=== PATIENT | female | born 1995 | race African-American/Black ===

== ENCOUNTER 2019-09-23 11:48 | Emergency (ER) | payer SELFPAY ==
[2019-09-23 12:02] VITALS: BP 126/82; PULSE 99; RESP 16; TEMP 38.4; O2SAT 98
--- NOTE | 2019-09-23 12:14 | ED.URI ---
HPI - URI/Sore Throat General Chief Complaint: Upper Respiratory Infection Stated Complaint: Pos Flu Time Seen by Provider: 09/23/19 12:14 Source: patient Mode of arrival: ambulatory Limitations: no limitations History of Present Illness HPI Narrative: Kristi Staley is 24-year-old female with no prior medical history who [facility] 2 days of body aches cough headache that has not responded to [id number] medication. On arrival she has a temperature 101.1 Related Data Home Medications Medication Instructions Recorded Confirmed Vicks DayQuil-NyQuil 09/23/19 Allergies Allergy/AdvReac Type Severity Reaction Status Date / Time No Known Allergies Allergy Unknown Unverified 04/06/16 15:10 Review of Systems Review of Systems: Narrative: CONSTITUTIONAL: Has fever, chills, sweats. EYES: Denies visual changes, redness, discharge. ENT: Has rhinorrhea, congestion, has sore throat, otalgia. CARDIOVASCULAR: Denies chest pain, palpitations, edema. RESPIRATORY: Denies dyspnea, wheezing, dry cough GASTROINTESTINAL: Denies abdominal pain, nausea, vomiting, diarrhea. GENITOURINARY: Denies dysuria, hematuria, abnormal discharge SKIN: Denies rash or itching. MUSCULOSKELETAL: Denies acute back pain, joint pain, or myalgia. NEUROLOGIC: Denies numbness, or focal weakness. PSYCHIATRIC: Denies anxiety or depression. COUNT INCLUDES THE [facility] Family History Family History Other No active medical problems Social History Social History Smoking status: Never smoker Alcohol intake: never Comments At time of signature, I agree with nursing past medical, surgical, social and family history. There is no relevant family history pertinent to the presenting complaint. Exam Narrative: Exam Narrative: GENERAL: This is a well-nourished, well-developed patient, in moderate distress. HEAD: normocephalic, atraumatic. EYES: PERRL. Sclera clear/white. Vision is grossly intact. EARS: External ears normal, auditory canals clear and without drainage, TMs normal without perforation. Hearing grossly intact. NOSE: External nose normal with no obvious nasal discharge, nares with redness, has rhinorrhea. THROAT: Mucous membranes moist, posterior pharynx erythema. NECK: Neck supple, non-tender without lymphadenopathy, masses or thyromegaly. CARDIOVASCULAR: Regular rate and rhythm without murmurs, gallops, or rubs. RESPIRATORY: Clear to auscultation. Breath sounds equal bilaterally. No wheezes, rales, or rhonchi. GASTROINTESTINAL: Abdomen soft, non-tender, nondistended. SKIN: warm, intact with no suspicious lesions or rash, good texture and turgor. NEURO: awake, alert, and oriented to person, place and time. There were no obvious focal neurologic abnormalities. Steady gait EXTREMITIES: Normal range of motion. No edema. BACK: Nontender without deformity or crepitance. No flank tenderness. Course Course Emergency Course: Strep negative Flu be positive Started on Tamiflu, ibuprofen, Delsym cough syrup Vital Signs Vital signs: Vital Signs Temperature 101.1 F H 09/23/19 12:02 Pulse Rate 99 09/23/19 12:02 Respiratory Rate 16 09/23/19 12:02 Blood Pressure 126/82 09/23/19 12:02 Pulse Oximetry 98 09/23/19 12:02 Temperature 101.1 F H 09/23/19 12:02 Pulse Rate 99 09/23/19 12:02 Respiratory Rate 16 09/23/19 12:02 Blood Pressure 126/82 09/23/19 12:02 Pulse Oximetry 98 09/23/19 12:02 MDM - URI/Sore Throat Differential Diagnosis Differential diagnosis: Likely upper respiratory infection, influenza and other Discharge Plan Discharge Clinical Impression: Influenza Patient Disposition: Home, Self-Care Condition: Stable Instructions: Antibiotic Form Prescriptions: New oseltamivir [Tamiflu] 75 mg capsule 75 mg PO Q12H 5 Days Qty: 10 RF: 0 ibuprofen 600 mg tablet 600 mg PO Q6H
== END 2019-09-23 12:39 | disposition home or self-care (01) ==
PROVIDERS: Emergency Provider Nurse Practitioner
DX: J11.1 Influenza due to unidentified influenza virus with other respiratory manifestations (principal)
CPT/HCPCS: 87081; 87804; 87880; 99213; G0463

== ENCOUNTER 2023-01-31 12:30 | Emergency (ER) | payer BC, SELFPAY ==
[2023-01-31] VITALS (11 sets, daily range): BP systolic 124–139; BP diastolic 68–73; PULSE 74–89; RESP 16–17; TEMP 36.4; O2SAT 98–100
--- NOTE | ~2023-01-31 | US_ITS ---
US OB follow up DATE: 01/31/2023 13:12 INDICATION: Lower abdominal pain; 19 weeks gestational age TECHNIQUE: Real-time imaging and Doppler analysis COMPARISON: None FINDINGS: There is a live strong intrauterine gestation, fetus in longitudinal lie, vertex present ation, with heart rate of 147 bpm. Posterior placenta. Normal amount of amniotic fluid by subjective assessment with up to 4.1 cm deep a mniotic fluid pocket. Biparietal diameter 4.66 cm; 20 weeks 1 day Head circumference 16.97 cm; 19 weeks 4 days Abdominal circumference 14.31 cm; 19 weeks 5 days Femur length 3.05 cm; 19 weeks 3 days Composite age by Hadlock formula is 19 weeks 5 days +/- 1 week 3 days with JEMAL of 06/22/2023, compared to 06/25/2023 by LMP. Estimated weight is 301 +/- 45 g. Estimated weight-GP: 63.5% Head circumference/abdominal circumference 1.19, within normal range of 1.08-1.26 Femur length/head circumference 18.00, within normal range of 16.60-19.37. IMPRESSION: Estimated gestational age is 19 weeks 5 days +/- 1 week 3 days with JEMAL of 06/22/2023, com pared to 07/05/2023 by LMP Reviewed, dictated and finalized at [facility]. Reviewed, dictated and finalized at [facility]. IMPRESSION: Estimated gestational age is 19 weeks 5 days +/- 1 week 3 days with JEMAL of 06/22/2023, compared to 07/05/2023 by LMP
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
--- NOTE | 2023-01-31 12:57 | PC.NURSE ---
US at bedside.
[2023-01-31 13:24] LABS: Basophils Percent Auto 0.2 % (0.2-1.2); Eosinophils Percent Auto 0.3 % (0-4.4); Hematocrit 30.2 % (37.0-47.0); Immature Granulocyte Absolute 0.05 K/mm3 (0.00-0.031); Immature Granulocyte Percent A 0.5 % (0-0.5); Lymphocytes Absolute Auto 1.82 K/mm3 (0.9-3.2); Lymphocytes Percent Auto 16.9 % (18.3-44.2); Mean Corpuscular HGB Conc 33.1 g/dl (32-36); Mean Corpuscular Hemoglobin 26.8 pg (26-34); Mean Platelet Volume 11.2 fl (7.4-10.4); Monocytes Absolute Auto 0.8 K/mm3 (0.1-0.6); Monocytes Percent Auto 7.3 % (2.6-8.5); Neutrophils Absolute Auto 8.1 K/mm3 (1.3-6.7); Neutrophils Percent Auto 74.8 % (45.5-73.1); Platelet Count Result 238 k/mm3 (150-375); Red Blood Count 3.73 M/mm3 (4.2-5.4); Red Cell Distribution Width 12.8 % (11.5-14.5); White Blood Count 10.8 K/mm3 (4.5-10.0)
[2023-01-31 13:30] LABS: Appearance Urine Cloudy (Clear); Bacteria Urine 1+ /hpf; Bilirubin Urine Negative (Negative); Blood Urine Negative (Negative); Color Urine Yellow (Yellow); Glucose Urine UA Negative (Negative); Ketones Urine Negative (Negative); Leukocyte Esterase Ur Negative LEU/UL (Negative); Nitrate Urine Negative (Negative); Non Pathogenic Casts 0-2; Protein Urine Negative (Negative); RBC Urine 0-2 /hpf (0-2); Specific Grav Ur 1.014 (1.001-1.035); Squamous Epithelial Cell Urine Moderate /hpf (Few); WBC Urine 0-5 /hpf; pH Urine 6.5 (5.0-9.0)
[2023-01-31] MEDS: LACTATED RINGERS 1,000 ML 999 ML IV CONT (13:36)
[2023-01-31 13:38] LABS: Alanine Aminotransferase 18 U/L (6-35); Albumin Level 3.6 g/dL (3.5-5.1); Alkaline Phosphatase 38 U/L (38-126); Anion Gap 3 mmol/L (8-16); Aspartate Amino Transferase 21 U/L (14-36); Bilirubin,Total 0.6 mg/dL (0.2-1.3); Blood Urea Nitrogen 8 mg/dL (7-17); Calcium 8.4 mg/dL (8.4-10.2); Carbon Dioxide 24 mmol/L (22-30); Chloride 106 mmol/L (98-107); Estimated CRCL calculation 157 ml/min; Estimated Glomerular Filt Rate > 60; Glucose 82 mg/dL (65-110); Potassium 3.9 mmol/L (3.4-5.0); Sodium 133 mmol/L (137-145)
[2023-01-31 13:49] LABS: Add Urine Microscopic? YES
[2023-01-31 14:00] LABS: Influenza A QL RT-PCR Negative (Negative); Influenza B QL RT-PCR Negative (Negative); SARS-CoV-2 RNA PCR Negative (Negative)
== END 2023-01-31 14:36 | disposition home or self-care (01) ==
PROVIDERS: Emergency Provider General Practice
DX: O26.892 Other specified pregnancy related conditions, second trimester (principal); R10.30 Lower abdominal pain, unspecified; Z20.822 Contact with and (suspected) exposure to COVID-19; Z86.16 Personal history of COVID-19; Z3A.20 20 weeks gestation of pregnancy
CPT/HCPCS: 36415; 76816; 80053; 81001; 85025; 87636; 96361; 96365; 99284; J0131; J7120

== ENCOUNTER 2024-02-25 16:52 | Emergency (ER) | payer OTHER, BC, SELFPAY ==
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
[2024-02-25 17:01] VITALS: BP 144/104; PULSE 77; RESP 14; TEMP 36.6; O2SAT 98
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
[2024-02-25] MEDS: ACETAMINOPHEN 500 MG TABLET 1000 MG PO (18:25)
[2024-02-25 20:05] VITALS: BP 138/90; PULSE 80; RESP 17; O2SAT 100
== END 2024-02-25 20:05 | disposition home or self-care (01) ==
PROVIDERS: Emergency Provider Physician Assistant
DX: S16.1XXA Strain of muscle, fascia and tendon at neck level, initial encounter (principal); M47.812 Spondylosis without myelopathy or radiculopathy, cervical region; M47.816 Spondylosis without myelopathy or radiculopathy, lumbar region; M47.814 Spondylosis without myelopathy or radiculopathy, thoracic region; V49.50XA Passenger injured in collision with unspecified motor vehicles in traffic accident, initial encounter
CPT/HCPCS: 70450; 72125; 72128; 72131; 73030; 81025; 99284; A9270

== ENCOUNTER 2024-12-16 08:25 | Emergency (ER) | payer BC, SELFPAY ==
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
[2024-12-16 08:29] VITALS: PULSE 103; RESP 16; TEMP 36.6; O2SAT 100
--- NOTE | 2024-12-16 09:04 | ED_ITS ---
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 Pt has antibiotic prescribed but has not filled it. Pt complains of right ankle pain to outside of ankle. Pt not sure if she twisted ankle when she was running from dog. Related Data Home Medications ?Medication ?Instructions ?Recorded ?Confirmed ?Last Taken ?Type Vicks DayQuil-NyQuil 09/23/19 Unknown History Allergies Allergy/AdvReac Type Severity Reaction Status Date / Time No Known Allergies Allergy Unknown Verified 12/16/24 08:26 Review of Systems Review of Systems: All systems reviewed & are unremarkable except as noted in HPI and below PMFSH Past Medical History Medical History (Updated 12/16/24 @ 09:09 by Mylene Mcguire III DO) Patient denies medical problems Surgical History Surgical History (Updated 01/31/23 @ 13:01 by Carmen Dove MD) No pertinent past surgical history Family History Family History Other No active medical problems Social History Social History Smoking status: Never smoker Alcohol intake: never Exam Const: General: healthy appearing and no acute distress Orientation/consciousness: patient oriented x3 Limitations: no limitations Resp: Effort & Inspection: normal respiratory effort Auscultation: clear to auscultation bilaterally Cardio: Rate: regular rate Rhythm: regular rhythm Skin: General skin exam: normal color Rashes: no rashes Wounds: no wounds Neuro: General: patient oriented x3, moves all extremities and no focal motor deficits Extrem: Other: tender over atfl on right ankle Psych: Mental Status: mental status grossly normal Affect: normal affect Attitude: cooperative Course Vital Signs Vital signs: Vital Signs Temperature 97.8 F 12/16/24 08:29 Pulse Rate 103 H 12/16/24 08:29 Respiratory Rate 16 12/16/24 08:29 Pulse Oximetry 100 12/16/24 08:29 Temperature 97.8 F 12/16/24 09:32 Pulse Rate 96 12/16/24 09:32 Respiratory Rate 16 12/16/24 09:32 Blood Pressure 124/82 12/16/24 09:32 Pulse Oximetry 100 12/16/24 09:32 MDM - Extremity Injury (Lower) MDM Narrative Medical decision making narrative: pt has laterla ankle pain after running from dog that bit her. x rays neg. pt has antibiotics precribed for dog bite. ankle sprain ice elevated crutches naprosyn off work for 3 days Discharge Plan Discharge Clinical Impression: Ankle sprain Patient Disposition: Home Condition: Stable Instructions: Antibiotic Form, Ankle Sprain (DC) Patient Language: Urdu Prescriptions: New naproxen [Naprosyn] 500 mg tablet 500 mg PO BID Qty: 20 0RF No Action Vicks DayQuil-NyQuil oseltamivir [Tamiflu] 75 mg capsule 75 mg PO Q12H 5 Days Qty: 10 0RF ibuprofen 600 mg tablet 600 mg PO Q6H PRN (Reason: fever or pain) Qty: 20 0RF Delsym Cough-Chest Congest DM 5-100 mg/5 mL liquid 10 ml PO Q4-8H PRN (Reason: cough) Qty: 180 0RF cyclobenzaprine 10 mg tablet 10 mg PO TID PRN (Reason: muscle spasm) Qty: 14 0RF Follow-up/Referrals: PHYSICIAN,POCKET CREASER [Non-Staff] - Stand Alone Forms: Work/School Release IP
[2024-12-16 09:32] VITALS: BP 124/82; PULSE 96; RESP 16; TEMP 36.6; O2SAT 100
--- OUTSIDE RECORDS SUMMARY | 2024-12-17 11:06 | XMS_ITS | Data Portability ---
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 She has a history of a fibroid cyst growth on right breast, which has not changed since the age of 18. The patient is experiencing discharge, possibly related to soap usage and a previous trichomoniasis infection. The patient's previous Pap smear was normal, and she has not had any abnormal results or concerns related to sexually transmitted infections. Overall, the patient appears to be in good health, with no significant concerns identified during the visit. Fibroid cyst growth: The patient has a long-standing fibrous cyst in right breast that has not changed in size since it was first identified at 18 years old. It is not causing any symptoms or problems for the patient. The patient is advised to monitor the cyst for any changes and to notify the healthcare team if any changes occur. Not available 12/01/2023 15:13:05 Plan of Treatment Reminders Order Date Submit Date Provider Last Modified By Organization Details Last Modified Time Details Appointments None recorded. Lab unlisted lab - STD screening ([facility]) 2023 024 ZOË [facility], [address] [place], [address], 12:59:26 pap, LB 2023 024 [facility], [address] [facility], [place], [address], 17:00:21 unlisted lab - Pap reflex hold 2023 024 berto salas [facility], [address] [place], [address], 4 11:02:29 STI panel 2023 024 ZOË [facility], [address] [place], [address], 4 09:58:18 Referral None recorded. Procedures None recorded. Surgeries None recorded. Imaging None recorded. Medication Orders Depo-Research Epidemiologist a 150 mg/mL intramuscul ar suspension [email or web address] [id number], [address] , [place], [place], [id number], 15:10:07 Patient TargetsNo targets recorded. Patient Instructions Encounter Date Encounter Id Patient Instructions Last Modified By Organization Details Last Modified Time 12/01/2023 [id number] body mass index: care instructions Not available 12/01/2023 15:10:32 Following the [employer] Food Guide: Care Instructions Not available 12/01/2023 15:10:07 exercise program : getting started Not available 12/01/2023 15:10:07 learning about breast cancer screening Not available 12/01/2023 15:10:07 mammogram: about this test Not available 12/01/2023 15:10:07 - Monitor the fibroid cyst growth for any changes and notify the healthcare team if any changes occur - Use boric acid suppositories for three nights to alleviate the discharge - Await results of the Pap smear and STI testing, which will be provided in five days - Obtain Depo-Provera refills from the pharmacy when needed - Continue to have well woman exams annually, even if Pap smears are not required every year - Contact the healthcare team if any concerns or issues arise Not available 12/01/2023 15:14:35 Not available 2023 15:14:43 Reason for Referral None Reported. Results Created Date Observation Date Name Description Value Unit Range Abnormal Flag Note LastModifiedBy Organization Detail LastModifiedTime 12/01/19 24 12/02/2023 STD SCREE VERA ([facility] ) hep BS Ag Non-Re active non-re active normal Not Available [address], [address], 12/02/2023 12:59:26 12/01/19 24 12/02/2023 STD SCREE VERA ([facility] ) hep C Ab Non-Re active non-re active normal Not Available [address], [address], 12/02/2023 12:59:26 12/01/19 24 12/02/2023 STD SCREE VERA ([facility] ) HIV 1/2 Ag/Ab Non-Re active non-re active normal Not Available [address], [address], 12/02/2023 12:59:26 12/01/19 24 12/02/2023 STD [facility] ([facility] ) syphilis Ab Non-Re active non-re active normal Not Available [address], [address], 12/02/2023 12:59:26 12/01/19 24 12/03/2023 THINP REP TIS PAP clinical information: normal None given Not Available [employer] [facility] [address] [place], [address], 12/03/2023 17:00:21 12/01/19 24 12/03/2023 THINP REP TIS PAP LMP: normal None given Not Available [employer] [facility] [address] [place], [address], 12/03/2023 17:00:21 12/01/19 24 12/03/2023 THINP REP TIS PAP prev. Pap: normal None given Not Available [address], [address], 12/03/2023 17:00:21 12/01/19 24 12/03/2023 THINP REP TIS PAP prev. BX: normal None given Not Available [address], [address], 12/03/2023 17:00:21 12/01/19 24 12/03/2023 THINP REP TIS PAP source: normal Cervi x Not Available [address], [address], 12/03/2023 17:00:21 12/01/19 24 12/03/2023 THINP REP TIS PAP statement of adequacy: normal Satis facto ry for evalu ation . Endoc ervic al/tr ansfo rmati on zone compo nent prese nt. Age and/o r menst rual statu s not provi ded Not Available [address], [address], 12/03/2023 17:00:21 12/01/19 24 12/03/2023 THINP REP TIS PAP interpretati on/result: normal Cytol ogy Resul ts: Negat bert for intra epith elial will n or josefina waters . Not Available [address] [place], [address], 12/03/2023 17:00:21 12/01/19 24 12/03/2023 THINP REP TIS PAP comment: normal This Pap test has been evalu ated with compu ter dorota eddie techn ology . Not Available [address], [address], 12/03/2023 17:00:21 12/01/19 24 12/03/2023 THINP REP TIS PAP cytotechnolo gist: normal MDG, CT( CP) CT scree vera locat ion: [address] [address] [place] [address] Not Available [employer] [address] [address] [address] [place], [address], 12/03/2023 17:00:21 12/01/19 24 12/03/2023 THINP REP TIS PAP comment EXPLA NATOR Y NOTE: The Pap is a scree vera test for cervi shakeel cance r. It is not a diagn ostic test and is subje ct to false negat bert and false posit bert resul ts. It is most relia ble when a satis facto ry sampl e, regul crista obtai reynaldo, is submi tted with relev ant clini shakeel findi ngs and histo ry, and when the Pap resul t is evalu ated along with histo vincent and curre nt clini shakeel infor matio n. Not Available [employer] [address] [address] [address], [place], [address], 12/03/2023 17:00:21 12/01/19 24 12/03/2023 STI PANEL trichomonas vaginalis TRICH POS negati ve abnormal Not Available [facility] [address] [place], [address], 12/04/2023 09:58:18 12/01/19 24 12/03/2023 STI PANEL chlamydia trachomatis CT neg negati ve normal This repor t is inten ded for us in clini shakeel monit oring and manag ement of patie nts. It is not inten ded for use in medic al-le gal appli catio n. Not Available [facility] [address] [place], [address], 12/04/2023 09:58:18 12/01/19 24 12/03/2023 STI PANEL neisseria gonorrhoeae GC neg negati ve normal This repor t is inten ded for us in clini shakeel monit oring and manag ement of patie nts. It is not inten ded for use in medic al-le gal appli catio n. Not Available [facility] [address] [place], [address], 12/04/2023 09:58:18 Result Notes None recorded. Problems Name Problem SNOMED Code Status Onset Date Resolution Date Notes Provider Name and Address Organization Details Recorded Time Pregnanc y 06879512 Completed 202207/17/2023 Tanja Lees null, [facility] [employer] [facility] [facility] 3 16:20:26 Late entry into care 355965380 Completed 2022 Tanja Lees null, [facility] [employer] [facility] [facility] 16:20:23 Late entry into care 772247966 Completed 202212/01/2023 Graham Herrmann null, [facility] [employer] [facility] [facility] 4 14:47:39 Sickle cell trait 83449260 Active 2022 unknown status of FOB- declines UNITY testing Gloria Grajeda null, [facility] [employer] [facility] [facility] 4 15:38:13 Sickle cell trait 04381300 Completed 2022 unknown status of FOB- declines UNITY testing Tanja Lees null, [facility] [employer] [facility] [facility] 3 16:20:23 High risk pregnanc y 82495845 Completed Tanja Lees null, [facility] [employer] [facility] 16:20:23 Glucose toleranc e test during pregnanc y - baby not yet delivere d outside referenc e range 044308003 Completed Tanja Lees null, [facility] [employer] [facility] [employer] 3 16:20:23 Anemia of pregnanc y 83253490 Completed Tanja Lees null, [facility] [employer] [facility] [employer] 3 16:20:23 Maternal drug use 40982595 Completed Cessation reviewed. Tanja Lees null, [facility] [employer] [facility] 3 16:20:23 Pruritic rash 56881001 Completed Tanja Lees null, [facility] [employer] [facility] [employer] 3 16:20:23 Hydronep hrosis 57407644 Completed Tanja Lees null, [facility] [employer] [facility] [employer] 3 16:20:23 Vaginal odor 536649250 Active 2023 JEREMY Mullen [address] [place], [address], [facility] 4 17:06:49 Bacteria l vaginosi s 303748087 Active 2023 JEREMY Mullen [address] [place], [address], [facility] 4 08:41:27 Trichomo nal vaginiti s 164262725 Active 2023 Tosha Ahn MOIS[facility] [address] [place], [address], [facility] 4 08:41:30 Problem Notes None recorded. Procedures Surgical History Date Name Laterality Status Provider Name and Address Organization Details Recorded Time 5 Depo Provera Injection completed Tanja Watters [facility] 09/05/2024 12:13:26 4 Depo Provera Injection completed Tanja Watters [facility] 05/25/2024 14:48:04 4 Depo Provera Injection completed Tanja Watters [facility] 02/29/2024 11:50:58 4 Date of Last Pap Smear completed Graham Herrmann [facility] 12/01/2023 14:47:45 4 Depo Provera Injection completed Tanja Watters [facility] 11/24/2023 17:59:32 4 Depo Provera Injection completed Letitia Lopez [facility] 08/29/2023 12:20:16 4 Kyleena IUD Removal completed JEREMY Mullen [address] [place], [address], [facility] 08/24/2023 09:58:29 3 Nexplanon Removal completed JORDANA LEW [address] [place], [address], [facility] [employer] 04/09/2023 15:24:41 Imaging Results None recorded. Procedure Notes None recorded. Medical Equipment None Reported. Allergies No known drug allergies Medications Name Sig Start Date Stop Date Status Note LastModified by Organization Details LastModified Time cyclobenzap rine 10 mg tablet TAKE 1 TABLET BY MOUTH THREE TIMES DAILY NEEDED FOR MUSCLE SPASM active Not Available Not Available No t Available benzonatate 200 mg capsule 11/30 completed Not Available Not Available Not Available hydrocodone 5 mg-acetamin ophen 325 mg tablet TAKE 1 TABLET BY MOUTH EVERY 6 HOURS NEEDED FOR PAIN OR ACUTE PAIN 11/30 completed Not Available Not Available Not Available metronidazo le 500 mg tablet TAKE 1 TABLET BY MOUTH TWICE DAILY FOR 7 DAYS 09/02 completed Not Available Not Available Not Available acetaminoph en 500 mg tablet TAKE 1 TABLET BY MOUTH EVERY 6 HOURS NEEDED FOR PAIN active Not Available Not Available No t Available OneTouch Ultra Test strips USE 1 STRIP TO CHECK GLUCOSE 4 TIMES DAILY 07/17 completed Not Available Not Available Not Available labetalol 100 mg tablet Take 0.5 tablets twice a day by oral route. 08/21 completed Not Available Not Available Not Available albuterol sulfate HFA 90 mcg/actuati on aerosol inhaler active Not Available Not Available Not Available medroxyprog esterone 150 mg/mL intramuscul ar suspension ADMINISTE R 1 ML IN THE MUSCLE EVERY 3 MONTHS active Not Available Not Available No t Available Wal-phed 30 mg tablet TAKE 1 TABLET BY MOUTH EVERY 4 HOURS NEEDED FOR CONGESTIO N active Not Available Not Available No t Available Vitamin 27 mg iron-0.8 mg tablet Take 1 tablet every day by oral route. 07/17 completed Not Available Not Available Not Available FeroSul 325 mg (65 mg iron) tablet TAKE 1 TABLET BY MOUTH ONCE DAILY 07/17 completed Not Available Not Available Not Available magnesium citrate 125 mg capsule Take 2 capsules by oral route. 08/21 completed Not Available Not Available Not Available OneTouch Ultra2 Meter USE TO TEST BLOOD SUGAR FOUR TIMES DAILY DIRECTED 07/17 completed Not Available Not Available Not Available OneTouch Delica Plus Lancet 33 gauge USE 1 LANCET TO CHECK GLUCOSE 4 TIMES DAILY 07/17 completed Not Available Not Available Not Available Vitals Date Recorded Body height Body mass index (BMI) Body weight Systolic blood pressure Diastolic blood pressure Systolic blood pressure Diastolic blood pressure Provider Name and Address Organization Details Last Updated DateTime 4 157.48 cm 28.8 kg/m2 46290.4 4 g 142 mm[Hg] 84 mm[Hg] 124 mm[Hg] 86 mm[Hg] Graham Herrmann [facility] 4 14:47:04 Social History Question Answer Notes LastModified by [employer] Details LastModified Time Tobacco Smoking Status Former Smoker Liudmila Espinosa dominguez, [facility] 04/02/2023 17:00:30 What Is Your Level Of Alcohol Consumption? None [email or web address] Information not available 04/02/2023 If You Are , What Was Your Level Of Alcohol Consumption Prior To ? None [email or web address] Information not available 04/02/2023 Are You Blind Or Do You Have Difficulty Seeing? No [email or web address] Information not available 04/23/2023 Are You Currently Employed? No Information not available 04/23/2023 Are You Deaf Or Do You Have Serious Difficulty Hearing? No Information not available 04/23/2023 What Type Of Diet Are You Following? REGULAR Information not available 04/02/2023 What Is The Highest Grade Or Level Of School You Have Completed Or The Highest Degree You Have Received? RM35368-5 [email or web address] Information not available 04/23/2023 How Many Children Do You Have? 2 [email or web address] Information not available 08/21/2023 What Is Your Relationship Status? Single [email or web address] Information not available 04/02/2023 Are You Sexually Active? Yes [email or web address] Information not available 04/02/2023 Do You Use Any Illicit Or Recreational Drugs? No [email or web address] Information not available 04/02/2023 Do You Or Have You Ever Used Any Other Forms Of Tobacco Or Nicotine? No [email or web address] Information not available 04/02/2023 Sex: Unknown Functional Status Question Answer Note LastModified by Organizat ion Details LastModified Time What is your exercise level? Occasional [email or web address] Information not available 04/02/2023 Mental Status None recorded. Family History Relationship Description Onset Age of this Age Resolved Age Notes LastModified by Organization Details LastModified Time Father No current problems or disability Not available 04/02 17:00:03 Mother No current problems or disability [email or web address] Not available 04/02 17:00:03 Medical History Condition Response Other Cancer N High Blood Pressure N Colon Cancer N Cytomegalovirus N Hyperthyroidism N MRSA N Herpes (HSV) N Breast Cancer N Blood Transfusion N Lung Cancer N Depression N Hypothyroidism N Incontinence N Panic Attacks N Neurological Disorder N Deep Vein Thrombosis N Anxiety Disorder N Autoimmune disease N Arthritis N Tuberculosis/Positive PPD N Shingles N Polycystic Ovarian Syndrome N Cervical Cancer N Hematuria N Chlamydia N Stroke N Varicosities N Seasonal allergies N Crohn's Disease N Alzheimer's/Dementia N COPD/Emphysema N Endometriosis N HPV/Genital Warts N IBS (Irritable Bowel Syndrome) N History of Abnormal Pap N High Cholesterol N Liver Disease N Kidney Infection N Fibromyalgia N Ulcer N Kidney Disease N HIV N Gallbladder disease N Sickle Cell Disease/Trait N Von Willebrand disease N ADD/ADHD N Eating Disorder N Anemia N Diabetes Mellitus (non-insulin dependent ) N Multiple Sclerosis N Ovarian Problems N Gonorrhea N Frequent Urinary Tract infections N Osteopenia N Headaches/migraines N GERD (reflux) N Ovarian Cancer N Diabetes (insulin dependent) N Seizures/Epilepsy N Fibroids N Asthma N Heart Attack N Lupus N Endometrial Cancer N Rubella N Blood Clotting Disorder N Bipolar Disorder N Diabetes Mellitus (during ) N Ulcerative Colitis N Hepatitis N Heart Disease N Pulmonary Embolism N RPR N Chicken Pox N Osteoporosis N Gynecological History Statement/Question Response Flow Light Date of LMP HPV Vaccine Y Duration of Flow (days) 6 Most Recent Mammogram Current Control Method Depo-Research Epidemiologist a Age at Menarche 13 Date of Last Colonoscopy Most Recent Bone Density Frequency of Cycle (Q days) 28 Date of Last Pap Smear 12/01/2023 Obstetrics History GPAL:G 2 P 2 0 0 2 Type Value Full Term 2 Living 2 Total 2 Past Encounters Encounter ID Performer Location Encounter Start Date Encounter Closed Date Diagnosis/Indication Diagnosis SNOMED-CT Code Diagnosis ICD10 Code Diagnosis Note [id number] VELASQUEZ LEW [facility] [address] [place] [address] 04/02/2023 16:05:39 04/02/2023 17:33:51 screening 578724136 Z36.9 Late entry into care 748769641 O09.32 Routine an tenatal care 358224942 Z34.01 Z34.81 O09.511 O09.521 Gestation period, 27 weeks 74375892 Z3A.27 Guide: Given and reviewed. Toxoplasmo sis precaution s reviewed. Reviewed office visit schedule during . Reviewed Quickening and normal FHTs. Sickle cell trait 792018 00 D57.3 Unknown status of FOB. Discussed doing UNITY testing, pt declines. [id number] JEREMY LEW[facility] [address] [place] [address] 04/09/2023 14:36:05 04/09/2023 16:39:12 screening 437442305 Z36.2 Late entry into care 044552238 O09.32 Routine an tenatal care 404845515 Z34.03 Sickle cell trait 905617 00 D57.3 Unknown status of FOB. Discussed doing UNITY testing, pt declines. Gestation period, 28 weeks 33319550 Z3A.28 Guide: Given and reviewed. Toxoplasmo sis precaution s reviewed. Reviewed office visit schedule during . Reviewed Quickening and normal FHTs. Iron defic iency screening 450655857 Z13.89 Removal of subcutaneous contraceptive 850738764 Z30.46 [id number] Diane Cardenas CNM [facility] [address] [place] [address] 04/23/2023 16:02:13 04/23/2023 23:17:29 Normal in multigravida 4772786234 59186 Z34.83 Gestation period, 30 weeks 12808679 Z3A.30 labor precaution s given. FM counts discussed. F/u in L&D if experienci ng decreased movement, leaking fluid, 4 or more contractio ns in 1 hour not relieved by rest and fluids, or regular uterine contractio ns increasing in frequency and/or intensity. Insufficie nt care 6263383730 109 O09.33 [id number] JEREMY Bravo [facility] [address] [place] [address] 05/01/2023 12:26:33 05/01/2023 17:38:49 screening 757453613 Z36.9 Glucose to lerance test during - baby not yet delivered outside reference range 496982368 O99.810 High risk 4720 0007 O09.93 1. IUP FWB reassuring by + FHT noted on BSUS. Aneuploidy screening: Plan UNITY testing at time of 3 hr GTT; see below POC. Anatomy Scan: Complete on 04/02.2. B+/RI/NRx4 . Last Pap: None on file; plan collection . 1 hr GTT: 136; see below POC. GBS:3. Late Onset to PNC - Pt began PNC at [facility] in 03/2023. Pt states she had first U/S at [facility] ER. Pt signed records release to get this radiology report. U/S 04/02 30.1%. Anatomy complete. Pt advised on importance for routine care for the remainder of the . 4. Abnormal Glucose - 1 hr GTT 136. Pt states she got sick during the first attempt to 3 hr GTT. Pt tried to check her BG at home, but unable to stick herself. Pt would like to have 2nd attempt at 3 hr GTT. Pt educated on fasting for 6 hours before testing, and to expedite testing to be done within the next week. Order added to chart today so it can be started if pt arrives before scheduled OBV time on 05/07/23.4. Anemia - Hgb 9.8, TSat 14% (L), Ferritin 6 (L) noted on intake. Hgb Elec notable for Sickle Cell Trait. On FeSO4. Pt educated on dietary recommenda tions and reinforced administra tion of PNV and iron supplement . Plan for repeat CBC and Iron Panel on 05/07/23 with 3 hr GTT.5. Sickle Cell Trait - noted on Hgb Elec on intake. Pt interested in UNITY Carrier screening to determine risk. Plan draw on 05/07/23 with 3 hr GTT.6. + MJ use - Cessation reviewed.7 . Itchy Rash noted on Bilat Hands/Feet - noted on 05/01/23. Erythemato us papular rash noted on bilateral hands and R ankle/foot area. Pt denies any recent exposure to lawn maintenanc e or weeds. Pt denies any change of soaps/laun dry detergents . Pt encouraged to avoid scented soaps/laun dry detergents , use of OTC hydrocorti sone cream and Benedryl PRN for relief.8. Hydronephr osis - dx in ER in 03/2023. Pt denies any complaints at this time. Pt educated on when to notify HCP/go to ER.9. Delivery Plans:10. PP Contracept ion Plans: Follow up in 2 weeks. 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 FM counts discussed. F/u in L&D if experienci ng decreased movement, leaking fluid, 4 or more contractio ns in 1 hour not relieved by rest and fluids, or regular uterine contractio ns increasing in frequency and/or intensity. [id number] Aneudy Shafer MD [address] [address] 07/17/2023 14:43:44 07/18/2023 09:54:01 state 39547417 Z39.2 weight was 168 at time of delivery and she has no swelling and she has had some elevated bp at [facility] and we will check labs and now bottle feeding and Elevated blood-pressure reading without diagnosis of hypertension 864669405 R03.0 back in 2 weeks or sooner Headache 11028276 R51.9 discused getting labs and the fact shes lost 20bs and no edema and called in magnesium [id number] JEREMY Mullen [address] [address] 08/21/2023 16:42:12 08/24/2023 15:18:15 Initiation of depot contraception done 6302115394 05569 Z30.013 Reviewed depo-prove ra- injection every 3 months; bleeding may be heavy and prolonged for the first few months, but amenorrhea occurs in 55 % of women within first 12 months, and 68 % by 24 months.Rec ommend Ca++/Vitam in D intake.Harry ght gain is common and can be as high as 11 lbs over 3 years. Removal of intrauterine contraceptive device 6211038506 Z30.432 IUD removed without incident at bedside, shown to patientPt aware fertility will return quicklyCon traception plan: Wants to start depo-prove ra. Vaginal odor 255719864 N 89.8 [id number] Taya Patrick MD [address] [address] 08/29/2023 12:00:58 08/29/2023 13:22:57 Surveillance of depot contraception done 9946627654 9104 Z30.42 depo provera injection given today [id number] DIOR PAGE [address] [address] 12/01/2023 14:25:16 12/01/2023 16:44:25 Gynecologic examination 73504593 Z01.419 The patient is undergoing a routine well woman exam, including an update on her Pap smear. The results of the Pap smear will be available in five days, and the patient will be contacted with the results. If the results are normal, the patient will not require another Pap smear for three years but should continue to have well woman exams annually. Zachary screening complete-N ot a candidate Screening for malignant neoplasm of cervix 869339649 Z12.4 ASCCP guidelines reviewed with pt. Pap collected and sent. Further POC pending lab result review. Pt states understand ing of POC. Screening for malignant neoplasm of breast 403833350 Z12.39 Pt educated on breast cancer screening guidelines . Denies any concerns with breast at this time. Denies any lumps, bumps, nipple discharge or unusual soreness. Pt states understand ing of POC. Surveillan ce of contraception [id number] Z30.40 The patient is receiving a prescripti on refill for her Depo-Prove ra contracept bert. A year's worth of refills will be sent to the pharmacy, and the patient can obtain the refills when needed. Venereal d isease screening [id number] Z11.3 The patient is experienci ng discharge that may be related to soap usage or a previous trichomoni asis infection. The patient is advised to use folic acid suppositor ies over the counter for three nights to alleviate the discharge. The Pap smear will also include testing for gonorrhea, chlamydia, and trichomona s to rule out any other infections . Depression screening [id number] Z13.31 PHQ9: 0. Pt educated on normal scoring, and discussed depression precaution s and when to notify HCP/go to ER. [id number] BRONWYN BANERJEE DO [facility] [address] [place] [address] 11/24/2023 16:29:10 11/30/2023 18:08:50 Surveillance of depot contraception done [id number] Z30.42 [id number] DIOR PAGE [facility] [address] [place] [address] 02/29/2024 11:34:14 02/29/2024 16:57:30 Surveillance of depot contraception [id number] Z30.42 Additional diagnosis detail: Surveillan ce for Depo-Prove ra contracept ion [id number] DIOR PAGE [facility] [facility] [address] [place] [address] 05/25/2024 14:27:30 05/27/2024 12:32:23 Surveillance of depot contraception [id number] Z30.42 Additional diagnosis detail: Surveillan ce for Depo-Prove ra contracept ion [id number] NAEL CORONEL NP [facility] [address] [facility] [address] 09/05/2024 11:56:10 09/05/2024 16:57:45 Surveillance of depot contraception [id number] Z30.42 29 y.o. here for depoprover a injection, no concerns Health Concerns Section Related Observation LastModified by Organization Detai ls LastModified Time None Recorded Concern Status LastModified by Organization Details LastModified Time None Recorded Advance Directives Directive None Recorded Payers Encounter Date Sequence Insurance Name Policy Number Policy Maier Covered Member ID Maier Member ID Guarantor Name 11/24/2023 1 [facility] (MEDICAID REPLACEMENT - HMO) [id number] Kristi Leggs [id number] Kristi Leggs 12/01/2023 1 [facility] (MEDICAID REPLACEMENT - HMO) [id number] Kristi Leggs [id number] Kristi Leggs 02/29/2024 1 [facility] (MEDICAID REPLACEMENT - HMO) [id number] Kristi Leggs [id number] Kristi Leggs 05/25/2024 1 [facility] (MEDICAID REPLACEMENT - HMO) [id number] Kristi Leggs [id number] Kristi Leggs 09/05/2024 1 [facility] (MEDICAID REPLACEMENT - HMO) [id number] Kristi Leggs [id number] Kristi Leggs Notes Date Note Type Note Provider Name and Address Organization Details Recorded Time 12/01/2023 text/html Annual GYNReport ed bypatient.Menstrual cycle:Normal menses Urinary symptoms:No hematuria; No incontinence Vulva:No genital lesion Vagina:Normal vaginal discharge Breast:No breast pain; No breast lump; No nipple discharge Sexual complaints:No sexual complaints; No pain during intercourse; Normal libido Menopausal Symptoms:No menopausal symptoms; Normal vaginal lubrication Psychological symptoms:No depression; No anxiety; No PMDD The patient is here for a routine well woman exam, including an update on her Pap smear and a prescription refill for her Depo-Provera contraceptive. Patient reports fibrous cyst in right breast that has not changed in size since the age of 18. The cyst has not grown or changed significantly, and the patient has not experienced any associated symptoms or problems. The patient reports having a discharge issue after using a soap that she is not supposed to use. She also mentions that her ex-partner gave her trichomoniasis a few months ago. The patient has not experienced any other concerns related to sexually transmitted infections. The patient has had a previous Pap smear within the last three years, with no abnormal results. RODERICK MALLOY, [employer] [address] [facility], [place], [address], [facility] 12/01/2023 15:15:19 OBGyn Episode Ob Episode Information Episode Created Date Number of Fetuses Patient Bloodtype Patient rh Status Prepregnancy Weight lbs Domestic Partner Domestic Partner Phone Father Name [employer] V[employer] Worker Status 04/02/20 23 1 B Positive CLOSED Fetus Data First Name Last Name Admitted to NICU Weight (g) Sex Living Outcome Pediatric Complications Fetus ID Race Codes Race Delivery Type [id number] Problems Problem Notes Problem Name Start Date End Date Resolution Snomed Code Not e Late entry into care 04/02/2023 [id number] Sickle cell trait 04/02/2023 [id number] u nknown status of FOB- declines UNITY testing Maternal drug use [id number] Ce ssation reviewed. Anemia of [id number] Hydronephrosis 59741404 High risk [id number] Glucose tolerance test during - baby not yet delivered outside reference range 366084659 Pruritic rash [id number] Boris Calculation Initial Boris Date Initial Exam Date Initial Exam Provider Initial Ultrasound Date Last Menstrual Period Date Ultra Sound Weeks Gestation 06/27/2023 04/02/2023 04/02/2023 09/20/2022 28 Eighteen To Twenty Week Boris Update Ultra Sound Date Fundal Height At Umbil Quickening Date Ultra Sound Latest Weeks Gestation Final Boris Confirmed By Final Boris Confirmed Date Final Boris Date Ultra Sound Latest Days Gestation 0 [email or web address] 04/02/2023 06/27/20 23 0 Pre-terrance Flowsheet Flowsheet Date 04/02/2023 Tamayo Score Blood Edema Fundus Height Fundus Units Glucose Ketones Leukocytes Nitrite Labor Signs Protein Cervic Dilation Cervic Effacement Cervic Station none Type Weight in lbs Pre/Post Dialysis Refused With clothes 153.195266495921 BP Diastolic BP Location Tested BP Systolic BP Type 68 R arm 120 sitting Fetus Heart Rate Present A 144 Present Fetus Movement A Yes Comments Late entry into car e. Pt had an US in the 1st Trimester in ER for dating. Anatomy done today; complete. NOB labs done today. Declines UNITY. Unable to do 1 hour gct, will do next appointment. No OB complaints. Flowsheet Date 04/09/2023 Tamayo Score Blood Edema Fundus Height Fundus Units Glucose Ketones Leukocytes Nitrite Labor Signs Protein Cervic Dilation Cervic Effacement Cervic Station 28 cm none Type Weight in lbs Pre/Post Dialysis Refused With clothes 155.469530656297 BP Diastolic BP Location Tested BP Systolic BP Type 76 L arm 130 sitting Fetus Heart Rate Present A 134 Present Fetus Movement A Yes Comments No OB complaints. TDAP educa tion and order given. 1 hour gct, 3rd Trimester labs, and iron studies done today. Toward end of appointment pt states she has had a Nexplanon in place for 8+ years- removed today. Flowsheet Date 04/09/2023 Tamayo Score Blood Edema Fundus Height Fundus Units Glucose Ketones Leukocytes Nitrite Labor Signs Protein Cervic Dilation Cervic Effacement Cervic Station none neg Type Weight in lbs Pre/Post Dialysis Refused BP Diastolic BP Location Tested BP Systolic BP Type Fetus Heart Rate Present Fetus Movement Comments Flowsheet Date 04/23/2023 Tamayo Score Blood Edema Fundus Height Fundus Units Glucose Ketones Leukocytes Nitrite Labor Signs Protein Cervic Dilation Cervic Effacement Cervic Station none [place] Type Weight in lbs Pre/Post Dialysis Refused With clothes 156.161126043972 BP Diastolic BP Location Tested BP Systolic BP Type 76 L arm 120 sitting Fetus Heart Rate Present A 145 Fetus Movement A Yes Comments No OB concerns. Round ligame nt pain - comfort measures discussed. Has not picked up glucose monitoring supplies. Offered to repeat 3 hr testing but pt declined. Will pick supplies today and call if not covered by insurance. Flowsheet Date 05/01/2023 Tamayo Score Blood Edema Fundus Height Fundus Units Glucose Ketones Leukocytes Nitrite Labor Signs Protein Cervic Dilation Cervic Effacement Cervic Station none 30 cm Other (see comments ) Type Weight in lbs Pre/Post Dialysis Refused With clothes 150.971109390990 BP Diastolic BP Location Tested BP Systolic BP Type 70 120 sitting Fetus Heart Rate Present A 149 Present Fetus Movement A Yes Comments See Visit Plan. Flowsheet Date 05/07/2023 Tamayo Score Blood Edema Fundus Height Fundus Units Glucose Ketones Leukocytes Nitrite Labor Signs Protein Cervic Dilation Cervic Effacement Cervic Station none 31 cm none Type Weight in lbs Pre/Post Dialysis Refused With clothes 153.948735104175 BP Diastolic BP Location Tested BP Systolic BP Type 80 L arm 124 sitting Fetus Heart Rate Present A 151 Fetus Movement A Yes Comments No OB concerns. Will start t esting glucose fasting & 2 hr pPr. cold symptoms - taking OTC medication. EFW 1860 g. 30%. Posterior placenta. Taking iron supplementation. Repeat CBC next appointment. Iron infusion discussed if needed. F/u in 2 wks. Flowsheet Date 07/17/2023 Tamayo Score Blood Edema Fundus Height Fundus Units Glucose Ketones Leukocytes Nitrite Labor Signs Protein Cervic Dilation Cervic Effacement Cervic Station Type Weight in lbs Pre/Post Dialysis Refused Weight 147.592725241669 BP Diastolic BP Location Tested BP Systolic BP Type 78 136 Fetus Heart Rate Present Fetus Movement Comments Menstrual History Last Menstrual Date Menses Monthly On Bcp Conception Prior Menses Frequency Hcg Plus Date Menarche Onset Age 0209/20/2022 Genetic Screening And Infection History Question Response Note Thalassemia (Ukrainian, Romanian, Mediterranean, Or Background): MCV < 80 false Intellectual Disability/Autism false Personal or Family History of Congenital Heart D efect false History of Hepatitis false Muscular Dystrophy false Sickle Cell Disease Or Trait () true Pt has Trait Patient Or Partner Has History Of Genital Herpes false Hemophilia Or Other Blood Disorders false Guzman Disease false Patient's Age Will Be 35 Yea rs Or Older At Estimated Date of Delivery false If Yes, Agent(s) And Strength/Dosage false Medications (including Suppl ements, Vitamins, Herbs, OTC Drugs), Illicit/Recreational Drugs, Alcohol false Other Structural Defect false Recent Travel History Outside of Country false Maternal Metabolic Disorder (eg, Type 1 Diabetes , PKU) false Mike-Sachs (eg, Jehovah'S Witness, Cajun, Thai-[place]) f alse Other Infection History false [place]'s [place] false Cystic Fibrosis false Recurrent Loss, Or A Stillbirth false Rash Or Viral Illness Since Last Menstrual Perio d false Live With Someone With TB Or Exposed To TB false Mental Retardation/Autism false If Yes, Was Person Tested For Fragile X? false History of HIV false Any Other Genetic History false Hemoglobinopathy Or Carrier false Prior GBS-infected child false Down Syndrome false Other Inherited Genetic Or Chromosomal Disorder false Patient Or Baby's Father Had A Child With Defects Not Listed Above false Personal or Family History o f Neural Tube Defect (Meningomyelocele, Spina Bifida, Or Anencephaly) false History Of STD, Gonorrhea, Chlamydia, HPV, Syphi lis false Delivery Information Delivery Date Delivery Type Labor Anesthesia Weeks Gestation Incision Type Labor Labor Length Hrs Delivered By Post Complications Tubal Sterilization Discharge Date Comments 3 Regional-Ep idural 38.5 false Discharge Information Feeding Method Contraceptive Method Maternal HG B and HCT Levels Ob Episode Information Episode Created Date Number of Fetuses Patient Bloodtype Patient rh Status Prepregnancy Weight lbs Domestic Partner Domestic Partner Phone Father Name [employer] Vat Worker Status 04/02/20 23 1 CLOSED Fetus Data First Name Last Name Admitted to NICU Weight (g) Sex Living Outcome Pediatric Complications Fetus ID Race Codes Race Delivery Type 3033.16 [id number] M Full Term [id number] Boris Calculation Initial Boris Date Initial Exam Date Initial Exam Provider Initial Ultrasound Date Last Menstrual Period Date Ultra Sound Weeks Gestation 0 Eighteen To Twenty Week Boris Update Ultra Sound Date Fundal Height At Umbil Quickening Date Ultra Sound Latest Weeks Gestation Final Boris Confirmed By Final Boris Confirmed Date Final Boris Date Ultra Sound Latest Days Gestation 0 0 Menstrual History Last Menstrual Date Menses Monthly On Bcp Conception Prior Menses Frequency Hcg Plus Date Menarche Onset Age Delivery Information Delivery Date Delivery Type Labor Anesthesia Weeks Gestation Incision Type Labor Labor Length Hrs Delivered By Post Complications Tubal Sterilization Discharge Date Comments 3 39 Discharge Information Feeding Method Contraceptive Method Maternal HG B and HCT Levels Ob Episode Information Episode Created Date Number of Fetuses Patient Bloodtype Patient rh Status Prepregnancy Weight lbs Domestic Partner Domestic Partner Phone Father Name [employer] Vat Worker Status 07/17/20 23 1 DELETED Boris Calculation Initial Boris Date Initial Exam Date Initial Exam Provider Initial Ultrasound Date Last Menstrual Period Date Ultra Sound Weeks Gestation 0 Eighteen To Twenty Week Boris Update Ultra Sound Date Fundal Height At Umbil Quickening Date Ultra Sound Latest Weeks Gestation Final Boris Confirmed By Final Boris Confirmed Date Final Boris Date Ultra Sound Latest Days Gestation 0 0 Menstrual History Last Menstrual Date Menses Monthly On Bcp Conception Prior Menses Frequency Hcg Plus Date Menarche Onset Age Delivery Information Delivery Date Delivery Type Labor Anesthesia Weeks Gestation Incision Type Labor Labor Length Hrs Delivered By Post Complications Tubal Sterilization Discharge Date Comments 3 Regional-Ep idural [address] [place] Discharge Information Feeding Method Contraceptive Method Maternal HG B and HCT Levels
== END 2024-12-16 09:33 | disposition home or self-care (01) ==
LOC: ANHED 09:17
PROVIDERS: Emergency Provider Emergency Medicine
DX: S93.401A Sprain of unspecified ligament of right ankle, initial encounter (principal); X58.XXXA Exposure to other specified factors, initial encounter; Y93.02 Activity, running
CPT/HCPCS: 73610; 73630; 99283